=== PATIENT | female | born 1965 | race Asian ===

== ENCOUNTER 2024-08-21 10:18 | Inpatient (IN) | payer OTHER ==
[~2024-08-21] VITALS: Ht 144.8 cm; Wt 70.5 kg
[~2024-08-21 10:18] MED LIST: AMLO-258 PO; ASPI-1450 PO; ATOR40TA28 PO; CLON0.1T2 PO; LOSA-382 PO; METF-1211 PO; METO-325 PO; TICA90TA PO
[2024-08-21 11:14] LABS: BASOPHILS % (AUTO) 0.3 % (0.0-2.0); EOSINOPHILS % (AUTO) 1.7 % (1.0-6.0); HEMATOCRIT 44.1 % (36-46); HEMOGLOBIN 14.6 g/dL (12.0-16.0); LYMPHOCYTES # (AUTO) 1.7 K/uL (1.0-4.8); LYMPHOCYTES % (AUTO) 13.9 % (22.0-44.0); MEAN CORPUSCULAR HEMOGLOBIN 27.9 pg (26.0-34.0); MEAN CORPUSCULAR VOLUME 85 fL (80-100); MONOCYTES % (AUTO) 8.1 % (2.0-9.0); NEUTROPHILS # (AUTO) 9.2 K/uL (1.8-7.7); PLATELET COUNT (AUTO) 269 K/uL (150-450); RED BLOOD CELL COUNT(AUTO) 5.21 MIL/uL (4.00-5.20); RED CELL DISTRIBUTION WIDTH 13.2 % (11.5-14.5); WHITE BLOOD COUNT (AUTO) 12.1 K/uL (4.5-11.0)
[2024-08-21 11:24] LABS: ANION GAP 13 mmol/L (8-16); CALCIUM, TOTAL 9.3 mg/dL (8.8-10.5); CARBON DIOXIDE 23 mmol/L (22-29); CHLORIDE 93 mmol/L (98-107); GLOMERULAR FILTR. RATE CALC 31 mL/min (>60); GLUCOSE,RANDOM 154 mg/dL (70-110); POTASSIUM 3.6 mmol/L (3.5-5.1); SODIUM SERUM 129 mmol/L (136-145); UREA NITROGEN, BLOOD 36 mg/dL (7-18)
[2024-08-21 11:32] LABS: ALBUMIN 3.4 g/dL (3.4-5.0); BILIRUBIN,DIRECT 0.3 mg/dL (0.00-0.20); BILIRUBIN,TOTAL 1.3 mg/dL (0.1-1.0); PHOSPHORUS 3.6 mg/dL (2.5-4.9); TOTAL PROTEIN, SERUM 7.9 g/dL (6.4-8.2)
[2024-08-21 11:35] LABS: TROPONIN I-HIGH SENSITIVITY 211 ng/L (<51)
[2024-08-21] MEDS: FAMOTIDINE 20 MG/2 ML VIAL IVP ONE (11:42)
[2024-08-21] MEDS: ACETAMINOPHEN 500 MG TABLET PO ONE (11:42)
[2024-08-21] MEDS: ONDANSETRON HCL 4 MG/2 ML VIAL IVP ONE (11:42)
[2024-08-21] MEDS: SODIUM CHLORIDE 0.9% 1,000 ML IV ONE ×2 (11:42→13:38)
[2024-08-21] MEDS ORDERED: ACETAMINOPHEN 325 MG TABLET PO PRN (13:00)
[2024-08-21] MEDS ORDERED: DEXTROSE 50%-WATER 25 GM/50 ML SYRINGE IVP PRN (13:00)
[2024-08-21] MEDS ORDERED: ONDANSETRON HCL 4 MG/2 ML VIAL IVP PRN (13:00)
[2024-08-21] MEDS: PANTOPRAZOLE SODIUM 40 MG/VIAL IVP SCH (13:38)
[2024-08-21 14:52] LABS: TROPONIN I-HIGH SENSITIVITY 209 ng/L (<51)
[2024-08-21 15:23] LABS: APPEARANCE,URINE CLEAR (CLEAR); BILIRUBIN,URINE NEGATIVE (NEGATIVE); COLOR,URINE COLORLESS (YELLOW); GLUCOSE, URINE (UA) NEGATIVE (NEGATIVE); KETONES,URINE NEGATIVE (NEGATIVE); LEUKOCYTE ESTERASE ,URINE NEGATIVE (NEGATIVE); NITRATE,URINE NEGATIVE (NEGATIVE); OCCULT BLOOD,URINE NEGATIVE (NEGATIVE); PROTEIN,URINE NEGATIVE (NEGATIVE); SPECIFIC GRAVITIY, URINE 1.007 (1.003-1.030); UROBILINOGEN,URINE <=1.0 mg/dL (<=1.0)
[2024-08-21] MEDS: INSULIN LISPRO 100 UNITS/ML SQ PRN (17:43)
[2024-08-21 17:55] LABS: GLUCOMETER DEV NAME(LOC) ER.7; GLUCOSE,POINT OF CARE 152 MG/DL (70-110)
[2024-08-21 20:43] VITALS: BP 127/63; PULSE 77; RESP 18; TEMP 97.3; O2SAT 95
[2024-08-21] MEDS: ONDANSETRON 4 MG TABLET PO ONE (20:51)
[2024-08-21] MEDS ORDERED: DOCUSATE SODIUM 100 MG CAPSULE PO SCH (21:00)
[2024-08-21] MEDS ORDERED: TICAGRELOR 90 MG TABLET PO SCH (21:00)
[2024-08-22] MEDS ORDERED: ASPIRIN 81 MG CHEWABLE TABLET PO SCH (09:00)
[2024-08-22] MEDS ORDERED: ATORVASTATIN CALCIUM 40 MG TABLET PO SCH (09:00)
== END 2024-08-21 20:43 | disposition left against medical advice (07) | DRG 683 ==
LOC: EMS 10:26 → EDH 13:00
PROVIDERS: ADMIT Internal Medicine; ATTEND Internal Medicine
DX: N17.9 Acute kidney failure, unspecified (principal); K90.49 Malabsorption due to intolerance, not elsewhere classified; K52.9 Noninfective gastroenteritis and colitis, unspecified; I25.10 Atherosclerotic heart disease of native coronary artery without angina pectoris; E78.5 Hyperlipidemia, unspecified; R79.89 Other specified abnormal findings of blood chemistry; E11.9 Type 2 diabetes mellitus without complications; I10 Essential (primary) hypertension; I25.2 Old myocardial infarction; Z87.891 Personal history of nicotine dependence; Z95.5 Presence of coronary angioplasty implant and graft; Z79.899 Other long term (current) drug therapy; Z79.82 Long term (current) use of aspirin; Z85.79 Personal history of other malignant neoplasms of lymphoid, hematopoietic and related tissues
CPT/HCPCS: 71045; 80048; 80076; 81003; 82962; 83690; 83735; 83880; 84100; 84484; 85025; 93005; 96361; 96374; 96375; 99285; G0378; J1815; J2405; J2470; J3490; J7030; Q0162; 36415-L1; 36415-TC